=== PATIENT | female | born 1965 | race African-American/Black ===

== ENCOUNTER → 2019-04-11 | Outpatient (CLI) | payer OTHER ==
[~2019-04-11] MED LIST: CLAR10CA3 PO; FERR325T81 PO; LOTR10CA2 PO; MULTCAP PO
[2019-04-11 08:22] LABS: BASO % 0.9 % (0.0-1.0); EOS # 0.1 10^3/uL (0.0-0.5); EOS % 2.9 % (0.0-3.0); HEMATOCRIT 39.8 % (36.0-47.0); HEMOGLOBIN 13.1 g/dl (12.0-15.5); LYMPH # 2.3 10^3/uL (1.5-5.0); LYMPH % 51.2 % (24.0-44.0); MEAN CORPUSCULAR HEMOGLOBIN 28.9 pg (27.0-33.0); MEAN CORPUSCULAR HGB CONC 32.9 g/dl (32.0-36.5); MEAN CORPUSCULAR VOLUME 87.9 fl (80.0-96.0); MONO # 0.5 10^3/uL (0.0-0.8); NEUTROPHILS # 1.6 10^3/uL (1.5-8.5); NEUTROPHILS % 34.8 % (36.0-66.0); PLATELET COUNT, AUTOMATED 282 10^3/uL (150-450); RED BLOOD COUNT 4.53 10^6/uL (4.00-5.40); WHITE BLOOD COUNT 4.5 10^3/uL (4.0-10.0)
[2019-04-11 08:41] LABS: BLOOD UREA NITROGEN 24 MG/DL (7-18); CALCIUM LEVEL 8.6 MG/DL (8.5-10.1); CARBON DIOXIDE LEVEL 32 MEQ/L (21-32); CHLORIDE LEVEL 107 MEQ/L (98-107); CREATININE FOR GFR 0.72 MG/DL (0.55-1.30); GLOMERULAR FILTRATION RATE > 60.0 (>51); GLUCOSE, FASTING 83 MG/DL (70-100); POTASSIUM SERUM 4.4 MEQ/L (3.5-5.1); SODIUM LEVEL 143 MEQ/L (136-145)
--- NOTE | 2019-04-13 14:30 | ECGEPIP ---
[facility] Test Date: 2019-04-11 Pat Name: CRISTINA ERNANDEZ Department: Room: - Gender: Female Executive Admin: MOISES : 1965 Requested By: Puneet Christianson Order Number: [id number] Reading MD: Austin Barnhart Measurements Intervals [place] Rate: 70 P: 62 AL: 185 QRS: 64 QRSD: 99 T: 64 QT: 403 QTc: 437 Interpretive Statements SINUS RHYTHM MINIMAL VOLTAGE CRITERIA FOR LVH, CONSIDER NORMAL VARIANT Comparison tracing not on file Electronically Signed on 04-13-2019 14:30:25 EST by Austin Barnhart
== END ==
LOC: M LAB 07:23
PROVIDERS: ATTEND Podiatrist
DX: Z01.818 Encounter for other preprocedural examination (principal)

== ENCOUNTER 2019-04-20 08:24 | Day surgery (SDC) | payer OTHER ==
[~2019-04-20] VITALS: Ht 149.9 cm; Wt 49.0 kg
[~2019-04-20 08:24] MED LIST changes: +BACITRACIN PWD 50,000 UNITS VIAL As Ordered ONE; +BUPIVACAINE HCL 0.5% 10 ML VIAL As Ordered ONE; +LIDOCAINE 1% MDV 20ML VIAL SQ PRN; +LR 1,000 ML IV ONE; +NEOSPORIN GU IRRIG 20 ML VIAL As Ordered ONE; +dexameTHASONE 4 MG/ML 1ML VIAL (J1100) As Ordered ONE
[2019-04-20] MEDS ORDERED: ceFAZolin SOD 2 GM in IV 1 EA IV ONE (09:45)
[2019-04-20] MEDS ORDERED: fentaNYL 100 MCG/2 ML INJECTION (J3010) As Ordered ONE (10:24)
[2019-04-20] MEDS ORDERED: propofoL 200 MG/20 ML VIAL As Ordered ONE ×2 (10:24→11:59)
[2019-04-20] MEDS ORDERED: MIDAZOLAM INJ 2 MG/2 ML VIAL (J2250) As Ordered ONE (10:24)
[2019-04-20] MEDS: LIDOCAINE 2% MDV 20 ML VIAL As Ordered ONE (10:25)
[2019-04-20] MEDS ORDERED: PHENYLephrine HCL 500 MCG/5 ML (100MCG/ML) SYRINGE (J2370) As Ordered ONE (11:00)
[2019-04-20 12:50] VITALS: BP 144/81
--- NOTE | 2019-04-20 14:46 | REP ---
REASON: Status post Cody bunionectomy. COMPARISON: None. Fixation fusion pins are seen affixing digits 2-4 inclusive. Derotational osteotomy screws are seen in the distal aspect of the 1st and 5th metatarsals. Alignment is near anatomical. Overlying casting material obscures the bony detail. Electronically Signed by Johnathan Medrano DO 04/20/2019 03:43 P
--- NOTE | 2019-04-23 11:03 | RO ---
DATE OF SURGERY: 04/20/2019 PREOPERATIVE DIAGNOSES: 1. Hallux valgus metatarsus primus varus deformity right foot. 2. Tailor bunion deformity right foot. 3. Hammertoe deformity 2nd toe right foot. 4. Hammertoe deformity 3rd toe right foot. 5. Hammertoe deformity 4th toe right foot. 6. Hammertoe deformity 5th toe right foot. POSTOPERATIVE DIAGNOSES: 1. Hallux valgus metatarsus primus varus deformity right foot. 2. Tailor bunion deformity right foot. 3. Hammertoe deformity 2nd toe right foot. 4. Hammertoe deformity 3rd toe right foot. 5. Hammertoe deformity 4th toe right foot. 6. Hammertoe deformity 5th toe right foot. PROCEDURES PERFORMED: SURGEON: Puneet Christianson DPM CLEANING VALIDATION CONSULTANT: None. ANESTHESIA: Local MAC HEMOSTASIS: Ankle pneumatic tourniquet at 200 mmHg for 94 minutes. HARDWARE UTILIZED: 0.045 wires times three and an Arthrex headless 3.0 x 20 mm screw and a 2.5 x 14 mm screw. ESTIMATED BLOOD LOSS:less than 1 ml IRRIGATION: Dilute bacitracin, neomycin, and polymyxin B solution. DESCRIPTION OF OPERATION: On 04/20/2019, this 54-year-old white female was taken from her hospital room to the operating room and placed on the operating room table in the supine position. Following the induction of intravenous (IV) sedation and local and regional anesthesia, the right lower extremity was prepped and draped in the usual aseptic manner. Attention was directed to the patient's right foot. There was noted to be a hallux valgus deformity. At this time, the following procedure was performed: GABINO BUNIONECTOMY AND INTERNAL SCREW FIXATION 3.0 MM X 20 MM TIMES ONE RIGHT FOOT: Attention was directed to the patients right foot, and a 6-cm incision was placed over the first metatarsophalangeal joint of the right foot. The incision was deepened through the subcutaneous tissues, and all coursing venous tributaries were identified, underscored, clamped, cut, ligated, and electrocoagulated as necessary. A linear capsulotomy was performed in the same plane as the original skin incision. The capsule and periosteal structures were dissected free in one continuous layer dorsally, medially, and laterally, thus creating a capsule and periosteal-type envelope. This brought into view the hypertrophied medial eminence of the 1st metatarsal, which was osteotomized from dorsal to proximal through and through and extirpated from the wound in toto. Dissection was carried into the 1st intermetatarsal space where dissection was carried down to the level of the fibular sesamoid, and the fibular sesamoid conjoined tendon was released. Attention was directed to the medial surface of the 1st metatarsal, where a V-shaped osteotomy was performed. The capital fragment was transposed approximately 40% of the width of the shaft of the 1st metatarsal and fixated with a 3.0 x 20 mm headless compression screw. The redundant cortical spike was then osteotomized from dorsal to plantar through and through. It was rasped to a smooth contour. The wound was flushed with copious amounts of dilute bacitracin, neomycin, and polymyxin B solution. Attention was directed towards closure, where the capsular structure was coapted and maintained utilizing 2-0 Monocryl in a simple interrupted-type fashion. The subcutaneous tissues were coapted and maintained utilizing 4-0 Monocryl in a simple interrupted-type fashion. The skin incision was coapted and maintained utilizing 6-0 Monocryl in a continuous subcuticular-type fashion. Attention was directed to the lateral surface of the foot, where the following procedure was performed: TAILOR BUNIONECTOMY WITH DISTAL V OSTEOTOMY AND INTERNAL SCREW FIXATION 2.5 MM X 14 MM TIMES ONE, RIGHT FOOT: Attention was directed to the patients right foot. There was noted to be a Tailor bunion deformity. At this time, a 5 cm incision was placed over the lateral aspect of the 5th metatarsophalangeal joint. The incision was deepened through subcutaneous tissues, and all coursing venous tributaries were identified, underscored, clamped, cut, ligated, and electrocoagulated as necessary. A linear capsulotomy was performed in the same plane as the original skin incision. The capsule and periosteal structures were dissected free dorsally and plantarly. The hypertrophied lateral eminence of the 5th metatarsal was then osteotomized from distal to proximal through and through. A V-shaped osteotomy was then performed in the distal metaphysis of the 5th metatarsal with a long plantar and short dorsal wing, and the capital fragment was transposed approximately 30% to 35% of the width of the 5th metatarsal and fixated with a 2.5 x 14 mm headless compression screw. The osteotomy was noted to be stable in all three cardinal planes. The redundant cortical spike was then osteotomized from dorsal to plantar through and through, and the lateral surface was rasped to a smooth contour. The wound was flushed with copious amounts of dilute bacitracin, neomycin, and polymyxin B solution. Attention was directed towards closure, where the capsular structures were coapted and maintained using 2-0 Monocryl in a simple interrupted-type fashion. The subcutaneous tissues were coapted and maintained using 4-0 Monocryl in a simple interrupted-type fashion. The skin incision was coapted and maintained using 5-0 Monocryl in a continuous subcuticular-type fashion. This was additionally reinforced with Steri-Strips. Attention was then directed to the patient's 2nd toe of the right foot, where the following procedure was performed: PROXIMAL INTERPHALANGEAL JOINT ARTHROPLASTY 2ND TOE, RIGHT FOOT: Attention was directed to the patient's 2nd toe, and a 2 cm incision was placed over the proximal interphalangeal joint. The incision was deepened through subcutaneous tissue, and all coursing venous tributaries were identified, underscored, clamped, cut, ligated, and electrocoagulated as necessary. A transverse tenotomy and capsulotomy was then performed at the level of the proximal interphalangeal joint. The medial and lateral collateral ligaments were sharply incised. The head of the proximal phalanx was then osteotomized with a sagittal saw from dorsal to plantar through and through, and this was extirpated from the wound in toto. The base of the middle phalanx had the cartilage removed with a sagittal saw from dorsal to plantar through and through. The wound was flushed with copious amounts of dilute bacitracin, neomycin, and polymyxin B solution. K wire was then driven through the middle and distal phalanxes and retrograded into the proximal phalanx utilizing C-arm imagery. The wire was then bent and a protective ball placed at the distal end of this K wire. Attention was then directed towards closure, where utilizing a 4-0 braided nylon loop suture, a four-stranded Navarrete repair was performed at the extensor tendon. The skin was coapted and maintained utilizing 4-0 Prolene in a simple interrupted-type fashion. Attention was then directed to the patient's 3rd toe of the right foot, where the following procedure was performed: PROXIMAL INTERPHALANGEAL JOINT ARTHROPLASTY WITH EXTERNAL WIRE FIXATION 0.045 TIMES ONE 3RD TOE, RIGHT FOOT: Attention was directed to the patient's 3rd toe of the right foot. The procedure performed on the 2nd toe was now performed on the 3rd toe without variation or deletion, the only exception being that of anatomical location. Attention was then directed to the patient's 4th toe of the right foot, where the following procedure was performed: PROXIMAL INTERPHALANGEAL JOINT ARTHROPLASTY WITH EXTERNAL WIRE FIXATION 0.045 TIMES ONE 4TH TOE, RIGHT FOOT: Attention was directed to the patient's 4th toe of the right foot. The procedure performed on the 2nd toe was now performed on the 4th toe without variation or deletion, the only exception being that of anatomical location. Attention was then directed to the patient's 5th toe of the right foot, where the following procedure was performed: PROXIMAL INTERPHALANGEAL JOINT ARTHROPLASTY 5TH TOE, RIGHT FOOT: Attention was directed to the patient's 5th toe of the right foot. There was noted to be a hammertoe deformity. At this time, the procedure performed on the 2nd toe was now performed on the 5th toe with the following variations: No K wire was utilized, and the base of the middle phalanx did not have the cartilage removed. There were no other variations or deletions. The patient, having apparently tolerated the surgical procedure well, had 4 mg of dexamethasone sodium phosphate instilled proximal to the surgical site. Attention was directed towards bandaging, where a sterile compressive bandage was applied, consisting of Adaptic, 4 x 4's, 4 x 4 splints, Blanka, and Kerlix, and a [id number] fiberglass cast was applied on the patient's right foot. The patient, having apparently tolerated the surgical procedure well, was taken from the operating room (OR) to the recovery room, vital signs stable, the patient afebrile, for further monitoring by the anesthesia department. The patient had her tourniquet removed at 94 minutes, and there was instantaneous capillary filling time. Postoperative instructions were given upon discharge. VERA
== END 2019-04-20 13:30 | disposition home or self-care (01) ==
LOC: M SDC 08:24
PROVIDERS: ATTEND Podiatrist
DX: M20.11 Hallux valgus (acquired), right foot (principal); M21.621 Bunionette of right foot; M20.41 Other hammer toe(s) (acquired), right foot; I10 Essential (primary) hypertension; Z79.899 Other long term (current) drug therapy
CPT/HCPCS: 28110; 28285; 28296; 73630; 76000; 88300; 97116; C1713; J0690; J1100; J2250; J2370; J3010

== ENCOUNTER 2021-01-15 19:41 | Emergency (ER) | payer OTHER ==
[~2021-01-15] VITALS: Ht 149.9 cm; Wt 49.8 kg
[~2021-01-15 19:41] MED LIST changes: -BACITRACIN PWD 50,000 UNITS VIAL As Ordered ONE; -BUPIVACAINE HCL 0.5% 10 ML VIAL As Ordered ONE; -LIDOCAINE 1% MDV 20ML VIAL SQ PRN; -LR 1,000 ML IV ONE; -NEOSPORIN GU IRRIG 20 ML VIAL As Ordered ONE; -dexameTHASONE 4 MG/ML 1ML VIAL (J1100) As Ordered ONE
[2021-01-15 19:42] VITALS: BP 143/97
== END 2021-01-15 21:40 | disposition left against medical advice (07) ==
LOC: M ED 19:41
DX: Z53.21 Procedure and treatment not carried out due to patient leaving prior to being seen by health care provider (principal)

== ENCOUNTER → 2021-03-20 | Outpatient (CLI) | payer OTHER | LOC: M WHC 08:48 | PROVIDERS: ATTEND Family Medicine | DX: Z12.31 Encounter for screening mammogram for malignant neoplasm of breast (principal) ==